=== PATIENT | female | born 1985 | race Caucasian/White ===

== ENCOUNTER 2022-11-23 12:58 | Emergency (ER) | payer MEDICAID ==
[~2022-11-23] VITALS: Ht 160 cm; Wt 68.0 kg
--- NOTE | 2022-11-23 13:46 | NUR ---
C/O LEFT EAR PAIN SHOOTING DOWN TO CHEST FOR 5 DAYS. DENIES ANY DISCHARGE. BREATHING EVEN AND UNLABORED. AMBULATED TO BED WITH STEADY GAIT. AAOX4. CONNECTED TO MONITOR. VITAL SIGNS STABLE. SAFETY PRECAUTIONS IN PLACE. AWAITING MD ORDERS.
--- NOTE | 2022-11-23 14:08 | NUR ---
DR. JACKSON AT BEDSIDE FOR EVAL
--- NOTE | 2022-11-23 14:33 | NUR ---
COVID SWAB ANTIGEN COLLECTED AND SENT TO LAB
--- NOTE | 2022-11-23 14:33 | NUR ---
XRAY AT BEDSIDE
--- NOTE | 2022-11-23 14:34 | NUR ---
RAPID STREP SWAB COLLECTED AND SENT TO LAB
--- NOTE | 2022-11-23 14:34 | NUR ---
RAPID INLUENZA SWAB COLLECTED AND SENT TO LAB
[2022-11-23 15:09] LABS: BASOPHILS % (AUTO) 0.3 % (0.0-2.0); HEMATOCRIT 39 % (33-45); HEMOGLOBIN 12.9 g/dL (11.5-14.8); LYMPHOCYTES % (AUTO) 22.2 % (20.0-44.0); MEAN CORPUSCULAR HGB CONC 33 g/dl (31.0-36.0); MEAN CORPUSCULAR VOLUME 88 fL (82-100); MONOCYTES # (AUTO) 0.5 K/uL (0.1-1.30); MONOCYTES % (AUTO) 5.3 % (2.0-12.0); NEUTROPHILS # (AUTO) 6.1 K/uL (1.8-8.9); NEUTROPHILS % (AUTO) 69.2 % (43.0-81.0); PLATELET COUNT (AUTO) 246 K/uL (150-450); RED BLOOD CELL COUNT(AUTO) 4.45 MIL/uL (4.0-5.2); WHITE BLOOD COUNT (AUTO) 8.9 K/uL (4.3-11.0)
[2022-11-23 15:25] LABS: CALCIUM, SERUM 8.9 mg/dL (8.5-10.1); CARBON DIOXIDE 28 mmol/L (21-32); CHLORIDE 105 mmol/L (98-107); CREATININE 0.8 mg/dL (0.6-1.3); GLUCOSE 99 mg/dL (74-106); POTASSIUM 3.8 mmol/L (3.5-5.1); SODIUM SERUM 139 mmol/L (136-145); UREA NITROGEN, BLOOD 18 mg/dL (7-18)
[2022-11-23] MEDS ORDERED: METH4TAB3 PO (16:27)
[2022-11-23] MEDS ORDERED: KETOROLAC TROMETHAMINE 15 MG/ML VIAL ONE (17:22)
[2022-11-23] MEDS ORDERED: KETOROLAC TROMETHAMINE INJ 60 MG/2 ML VIAL IM ONE (17:30)
--- NOTE | 2022-11-23 17:30 | NUR ---
Patient discharged to home in stable condition. Written and verbal after care instructions given. Patient verbalizes understanding of instruction.
[2022-11-23 17:32] VITALS: BP 118/66
== END 2022-11-23 17:33 | disposition home or self-care (01) ==
LOC: ER 13:08
DX: R59.9 Enlarged lymph nodes, unspecified (principal); R07.0 Pain in throat; Z20.822 Contact with and (suspected) exposure to COVID-19
CPT/HCPCS: 99285; 71045; 87426; 96372; 93005; 87804 ×2; 85025; 80048; 36415; 87880; 84484; J1885; C9803; 86403-TC

== ENCOUNTER 2023-10-10 23:28 | Emergency (ER) | payer MEDICAID, OTHER ==
[~2023-10-10] VITALS: Ht 167.6 cm; Wt 72.6 kg
[~2023-10-10 23:28] MED LIST: METH4TAB3 PO
[2023-10-11 00:11] LABS: BASOPHILS % (AUTO) 0.2 % (0.0-2.0); EOSINOPHILS # (AUTO) 1.3 K/uL (0.0-0.7); EOSINOPHILS % (AUTO) 12.9 % (0.0-6.0); HEMATOCRIT 40 % (33-45); HEMOGLOBIN 13.3 g/dL (11.5-14.8); LYMPHOCYTES # (AUTO) 0.4 K/uL (0.8-4.8); LYMPHOCYTES % (AUTO) 4.3 % (20.0-44.0); MEAN CORPUSCULAR HEMOGLOBIN 30 PG (26.0-33.0); MEAN CORPUSCULAR HGB CONC 33 g/dl (31.0-36.0); MEAN CORPUSCULAR VOLUME 90 fL (82-100); MONOCYTES # (AUTO) 0.2 K/uL (0.1-1.30); MONOCYTES % (AUTO) 1.5 % (2.0-12.0); NEUTROPHILS # (AUTO) 8.4 K/uL (1.8-8.9); NEUTROPHILS % (AUTO) 81.1 % (43.0-81.0); PLATELET COUNT (AUTO) 286 K/uL (150-450); RED BLOOD CELL COUNT(AUTO) 4.51 MIL/uL (4.0-5.2); RED CELL DISTRIBUTION WIDTH 13.2 % (11.5-15.0); WHITE BLOOD COUNT (AUTO) 10.3 K/uL (4.3-11.0)
[2023-10-11 00:40] LABS: CALCIUM, SERUM 8.8 mg/dL (8.5-10.1); CARBON DIOXIDE 25 mmol/L (21-32); CHLORIDE 102 mmol/L (98-107); CREATININE 0.7 mg/dL (0.6-1.3); GLUCOSE 97 mg/dL (74-106); NT-PRO BNP 70 pg/mL (0-125); SODIUM SERUM 136 mmol/L (136-145); UREA NITROGEN, BLOOD 16 mg/dL (7-18)
[2023-10-11 01:08] LABS: THYROID STIMULATING HORMONE 12.322 uIU/mL (0.358-3.74)
[2023-10-11 01:18] LABS: MAGNESIUM 2.4 mg/dL (1.8-2.4)
[2023-10-11 02:45] VITALS: BP 121/69; TEMP 98.1; O2SAT 99
== END 2023-10-11 02:46 | disposition home or self-care (01) ==
LOC: ER 23:37
DX: R07.9 Chest pain, unspecified (principal); R00.2 Palpitations
CPT/HCPCS: 36415; 71045-TC; 80048-TC; 82550-TC; 83735-TC; 83880; 84439-TC; 84443-TC; 84484-TC; 85025-TC; 85378-TC

== ENCOUNTER 2025-03-10 21:09 | Emergency (ER) | payer MEDICAID, OTHER ==
[~2025-03-10] VITALS: Ht 167.6 cm; Wt 74.8 kg
[2025-03-10 21:50] LABS: PREGNANCY TEST URINE QUAL NEGATIVE (NEGATIVE)
[2025-03-10 21:50] LABS: PLATELET COUNT (AUTO) 278 K/uL (150-450); RED BLOOD CELL COUNT(AUTO) 4.67 MIL/uL (4.0-5.2); RED CELL DISTRIBUTION WIDTH 13.6 % (11.5-15.0); WHITE BLOOD COUNT (AUTO) 9.0 K/uL (4.3-11.0)
[2025-03-10 21:51] LABS: APPEARANCE,URINE CLEAR (CLEAR); BLOOD, URINE 3+ Ery/uL (NEGATIVE); LEUKOCYTE ESTERASE ,URINE NEGATIVE (NEGATIVE); NITRITE, URINE NEGATIVE (NEGATIVE); UGLUCOSE NEGATIVE (NEGATIVE)
[2025-03-10 21:59] LABS: CALCIUM, SERUM 9.1 mg/dL (8.5-10.1); CREATININE 0.7 mg/dL (0.6-1.3); SODIUM SERUM 137.0 mmol/L (136-145); UREA NITROGEN, BLOOD 9.0 mg/dL (7-18)
[2025-03-10 22:05] LABS: ASPARTATE AMINOTRANSFERASE 15.0 U/L (15-37); TOTAL PROTEIN, SERUM 7.4 g/dL (6.4-8.2)
[2025-03-10 22:08] LABS: ADD URINE CULTURE YES; SQUAMOUS EPITHELIAL CELL,UR Many /HPF (None Seen)
[2025-03-10] MEDS ORDERED: KETOROLAC TROMETHAMINE INJ 30 MG/ML VIAL ONE (22:38)
[2025-03-10] MEDS: IV NS 0.9% 1,000 ML IV ONE (22:41)
[2025-03-10] MEDS: KETOROLAC TROMETHAMINE INJ 30 MG/ML VIAL IV ONE (22:47)
[2025-03-10] MEDS ORDERED: CT SWABBABLE VALVE TRANS SET 1 EA INFUS.SET MC ONE (22:49)
[2025-03-10] MEDS ORDERED: IOHEXOL-300 100 ML VIAL IV ONE (22:49)
[2025-03-10] MEDS ORDERED: IV NS 0.9% 250 ML IV ONE (22:50)
[2025-03-11] MEDS ORDERED: NAPR-1009 PO (01:40)
[2025-03-11 01:52] VITALS: BP 124/83; TEMP 98.5; O2SAT 99
== END 2025-03-11 01:52 | disposition home or self-care (01) ==
LOC: ER 21:19
DX: N39.0 Urinary tract infection, site not specified (principal); N93.9 Abnormal uterine and vaginal bleeding, unspecified; R30.0 Dysuria; R10.30 Lower abdominal pain, unspecified; Z86.018 Personal history of other benign neoplasm
CPT/HCPCS: 99285; 74177; 96360; 85025; 80048; 87040; 87086; 83605; 83690; 80076; 84703; 81001; 36415; 76856; J1885; J7050; Q9967